=== PATIENT | female | born 1975 | race Caucasian/White ===

== ENCOUNTER → 2017-04-04 | Outpatient (CLI) | payer OTHER ==
[~2017-04-04] MED LIST: ADV100/50 INH; ALB0.5 INH; ALB18R INH; AZIT-1 PO; FLUT1DIS28 IH; HYOS0.128 PO; LEV125 PO; LEVO25TA61 PO; LOR10 PO; MAGN250T29 PO; MV M PO; NITR-105 PO; PRED-1 PO; RIZA10 PO; RIZA10TA3 PO; SCOT TP; SPIR25TA78 PO; TRET40CR2 EXT; UBID400C6 PO; [UNRECOGNIZED DRUG - CODE] TP
[2017-04-04 11:10] LABS: PLATELET COUNT, AUTOMATED 338 K/uL (150-450)
[2017-04-04 12:06] LABS: LDL CHOLESTEROL 130 mg/dl
== END ==
LOC: LAB 10:59
PROVIDERS: ATTEND Emergency Medicine
DX: E03.9 Hypothyroidism, unspecified (principal); E55.9 Vitamin D deficiency, unspecified; E83.52 Hypercalcemia
CPT/HCPCS: 36415; 82040; 82247; 82306; 82310; 82374; 82435; 82465; 82565; 82947; 83718; 84075; 84132; 84155; 84295; 84443; 84450; 84460; 84478; 84520; 85025

== ENCOUNTER → 2017-08-31 | Outpatient (CLI) | payer OTHER ==
[~2017-08-31] MED LIST changes: +AZEL23SP NS; +DAPS60GE; -SPIR25TA78 PO; +SPIR25TA80 PO; +SULF57CR9
== END ==
LOC: LAB 13:55
PROVIDERS: ATTEND Emergency Medicine
DX: R10.9 Unspecified abdominal pain (principal); R79.89 Other specified abnormal findings of blood chemistry
CPT/HCPCS: 36415; 82040; 82247; 82310; 82374; 82435; 82565; 82784; 82947; 83516; 84075; 84132; 84155; 84295; 84443; 84450; 84460; 84520; 87338

== ENCOUNTER → 2017-10-14 | Outpatient (CLI) | payer OTHER ==
[~2017-10-14] MED LIST changes: +PANT40TA65 PO
--- NOTE | 2017-10-14 15:48 | RADIOLOGY IMAGING REPORT ---
FACILITY: [facility] PATIENT NAME: Carina Desir : 1975 MR: [id number] V: [id number] EXAM DATE: ORDERING PHYSICIAN: CARLOS BHAGAT TECHNOLOGIST: Location: [facility] [place] Patient: Carina Desir : 1975 Visit/Account:[id number] Date of Sevice: 10/14/2017 EXAMINATION: Abdominal ultrasound complete: 10/14/2017 8:30 AM HISTORY: Gas and bloating after eating. COMPARISON STUDIES: CT chest 04/11/2016 images the upper abdomen FINDINGS: Gallbladder: no stones or sludge. Liver: Negative Common duct: 3 mm Pancreas: negative Spleen: negative Kidneys: negative Upper abdominal aorta and IVC: negative Ascites: none IMPRESSION: Normal abdominal ultrasound Report Dictated By: Maksim Soni MD at 10/14/2017 3:41 PM Report E-Signed By: Maksim Soni MD at 10/14/2017 3:43 PM WSN:[id number]
== END ==
LOC: US 02:07
PROVIDERS: ATTEND Emergency Medicine
DX: R10.9 Unspecified abdominal pain (principal)
CPT/HCPCS: 76700